=== PATIENT | male | born 1950 | race Caucasian/White ===

== ENCOUNTER 2017-08-31 16:05 | Emergency (ER) | payer MEDICARE, MEDICAID ==
[~2017-08-31] VITALS: Ht 167.6 cm; Wt 80.0 kg
[2017-08-31 18:25] LABS: *AMPHETAMINES SCREEN URINE NEGATIVE (NEGATIVE); *BARBITURATES SCREEN URINE NEGATIVE (NEGATIVE); *BENZODIAZEPINES SCREEN URINE NEGATIVE (NEGATIVE); *COCAINE SCREEN URINE NEGATIVE (NEGATIVE); CANNABINOID URINE SCREEN PRESUMTIVE POSITIVE (NEGATIVE); METHADONE URINE SCREEN NEGATIVE (NEGATIVE); OPIATES URINE SCREEN PRESUMTIVE POSITIVE (NEGATIVE); PHENCYCLIDINE URINE SCREEN NEGATIVE (NEGATIVE)
[2017-08-31 18:26] LABS: HEMATOCRIT. 32.9 % (42.0-52.0); MEAN CORPUSCULAR HEMOGLOBIN 29.5 pg (28.0-32.0); MEAN PLATELET VOLUME 9.8 fl (7.4-10.4); RED BLOOD CELL COUNT 3.74 mill/uL (4.7-6.1); RED CELL DISTRIBUTION WIDTH 20.1 % (11.6-14.6)
[2017-08-31 18:35] LABS: CHLORIDE 106 mEq/L (98-107)
[2017-08-31 18:40] LABS: ETHANOL BLOOD 41 mg/dL
[2017-08-31 18:42] LABS: PLATELET 46 x1000/uL (130-400)
[2017-08-31 18:58] LABS: PLATELET ESTIMATE MARKEDLY DECREASED
[2017-08-31 19:49] VITALS: BP 152/81
== END 2017-08-31 19:51 | disposition home or self-care (01) ==
LOC: ER 16:37
DX: T40.601A Poisoning by unspecified narcotics, accidental (unintentional), initial encounter (principal); F12.10 Cannabis abuse, uncomplicated; F11.10 Opioid abuse, uncomplicated; F17.200 Nicotine dependence, unspecified, uncomplicated; Y92.89 Other specified places as the place of occurrence of the external cause
CPT/HCPCS: 36415; 80053; 80305; 85025; 99284; G0482

== ENCOUNTER 2018-10-12 13:01 | Emergency (ER) | payer MEDICARE, MEDICAID ==
[~2018-10-12] VITALS: Ht 162.6 cm; Wt 77.0 kg
[~2018-10-12 13:01] MED LIST: FESO8TAB MT; SPIR50TA5 MT; TERA10CA4 MT; TRAM50TA3 MT; TRAZ-213 MT
[2018-10-12] MEDS ORDERED: BACITRACIN ZINC OINT UDPKT TOP ONE (14:30)
[2018-10-12] MEDS ORDERED: TETANUS, DIPHTHERIA, PERTUSSIS VAC/PF 0.5ML (>7YR OLD) IM ONE (14:30)
[2018-10-12 16:02] VITALS: BP 129/71
== END 2018-10-12 16:06 | disposition home or self-care (01) ==
LOC: ER 13:01
DX: S80.212A Abrasion, left knee, initial encounter (principal); S80.211A Abrasion, right knee, initial encounter; Z79.899 Other long term (current) drug therapy; W19.XXXA Unspecified fall, initial encounter; Y93.89 Activity, other specified; Y92.89 Other specified places as the place of occurrence of the external cause; Y99.8 Other external cause status
CPT/HCPCS: 73560; 90471; 90715; 99283

== ENCOUNTER 2019-02-26 12:35 | Emergency (ER) | payer MEDICARE, MEDICAID ==
[~2019-02-26] VITALS: Ht 160 cm; Wt 90.0 kg
[2019-02-26] MEDS ORDERED: TRAMADOL 50MG TABLET PO ONE (13:45)
[2019-02-26 14:25] VITALS: BP 129/75
== END 2019-02-26 14:48 | disposition home or self-care (01) ==
LOC: ER 12:35
DX: M54.5 Low back pain (principal); G89.29 Other chronic pain; Z85.9 Personal history of malignant neoplasm, unspecified; Z86.19 Personal history of other infectious and parasitic diseases
CPT/HCPCS: 99283

== ENCOUNTER 2019-04-21 10:13 | Inpatient (IN) | payer MEDICARE, MEDICAID ==
[~2019-04-21] VITALS: Ht 160 cm; Wt 66.2 kg
[2019-04-21] MEDS ORDERED: SODIUM CHLORIDE 0.9% 1,000 ML IV ONE (10:42)
[2019-04-21 10:59] LABS: BASOPHILS % 0.6 % (0.0-2.0); EOSINOPHILS % 2.8 % (0.0-5.0); HEMATOCRIT. 31.6 % (42.0-52.0); HEMOGLOBIN. 10.4 g/dL (14.0-18.0); LYMPHOCYTES % 16.7 % (20.0-50.0); MONOCYTES % 6.9 % (2.0-8.0); PLATELET 101 x1000/uL (130-400); RED BLOOD CELL COUNT 3.48 mill/uL (4.7-6.1); RED CELL DISTRIBUTION WIDTH 19.6 % (11.6-14.6)
[2019-04-21 11:06] LABS: CHLORIDE 108 mEq/L (98-107)
[2019-04-21 11:09] LABS: INR 1.4; PARTIAL THROMBOPLASTIN TIME 33.8 sec (23.4-31.0)
[2019-04-21 11:10] LABS: ETHANOL BLOOD < 10 mg/dL
[2019-04-21 11:14] LABS: CREATINE KINASE 68 IU/L (39-308)
[2019-04-21 11:17] LABS: CREATINE KINASE MB FRACTION 2.3 ng/mL (0.5-3.6)
[2019-04-21] MEDS ORDERED: MORPHINE SULFATE 4 MG/ML CPJ (NOT FOR IM USE) IV ONE (12:45)
[2019-04-21] MEDS ORDERED: ONDANSETRON HCL 4MG/2ML INJ IV ONE (12:45)
[2019-04-21] MEDS ORDERED: ACETAMINOPHEN 650MG/20.3ML UDC GT PRN (13:15)
[2019-04-21] MEDS ORDERED: ACETAMINOPHEN 650MG SUPP PR PRN (13:15)
[2019-04-21] MEDS ORDERED: ONDANSETRON HCL 4MG/2ML INJ IV PRN (13:15)
[2019-04-21] MEDS ORDERED: GUAIFENESIN 200MG/10ML SUGAR FREE UDC PO PRN (13:15)
[2019-04-21] MEDS ORDERED: DIPHENHYDRAMINE 50MG/ML VIAL IV PRN (13:15)
[2019-04-21] MEDS ORDERED: CLONIDINE 0.1MG TABLET PO PRN (13:15)
[2019-04-21] MEDS ORDERED: MAGNESIUM/ALUMINUM HYDROXIDE/SIMETHICONE 30ML UDC PO PRN (13:15)
[2019-04-21] MEDS ORDERED: NA PHOS,M-B/NA PHOS,DI-BA ENEMA 118ML PR PRN (13:15)
[2019-04-21] MEDS ORDERED: DOCUSATE SODIUM 100MG CAPSULE PO PRN (13:15)
[2019-04-21 16:04] VITALS: BP 115/79
[2019-04-21] MEDS: LACTULOSE 20G/30ML UDC PO SCH ×2 (16:28→21:39)
[2019-04-21] MEDS: ENOXAPARIN 40MG/0.4ML SYR SUBCUT SCH (16:28)
[2019-04-21] MEDS: ACETAMINOPHEN 325MG TABLET PO PRN (16:28)
[2019-04-21 20:00] VITALS: BP 155/74
[2019-04-21] MEDS: RIFAXIMIN 550 MG TABLET PO SCH (21:39)
[2019-04-21 23:19] LABS: CLARITY URINE CLEAR (CLEAR); COLOR URINE DARK YELLOW (YELLOW); KETONES URINE NEGATIVE (NEGATIVE); LEUKOCYTE ESTERASE URINE NEGATIVE (NEGATIVE); NITRITE URINE NEGATIVE (NEGATIVE); OCCULT BLOOD URINE NEGATIVE (NEGATIVE); PROTEIN URINE NEGATIVE (NEGATIVE); SPECIFIC GRAVITY URINE 1.018 (1.005-1.030); UROBILINOGEN URINE >8.0 E.U./dL (0.2-1.0)
[2019-04-21 23:30] LABS: *AMPHETAMINES SCREEN URINE NEGATIVE (NEGATIVE); *BARBITURATES SCREEN URINE NEGATIVE (NEGATIVE); *BENZODIAZEPINES SCREEN URINE NEGATIVE (NEGATIVE); *COCAINE SCREEN URINE NEGATIVE (NEGATIVE); METHADONE URINE SCREEN NEGATIVE (NEGATIVE); OPIATES URINE SCREEN PRESUMTIVE POSITIVE (NEGATIVE); PHENCYCLIDINE URINE SCREEN NEGATIVE (NEGATIVE)
[2019-04-21 23:31] LABS: CANNABINOID URINE SCREEN PRESUMTIVE POSITIVE (NEGATIVE)
[2019-04-22] VITALS: BP 117/73
[2019-04-22 04:00] VITALS: BP 133/75
[2019-04-22] MEDS: ACETAMINOPHEN 325MG TABLET PO PRN ×3 (05:29→20:30)
[2019-04-22] MEDS: LACTULOSE 20G/30ML UDC PO SCH ×3 (05:29→21:16)
[2019-04-22 05:43] LABS: BASOPHILS % 0.4 % (0.0-2.0); EOSINOPHILS % 2.9 % (0.0-5.0); HEMATOCRIT. 28.1 % (42.0-52.0); HEMOGLOBIN. 9.5 g/dL (14.0-18.0); LYMPHOCYTES % 20.5 % (20.0-50.0); MEAN CORPUSCULAR HEMOGLOBIN 30.5 pg (28.0-32.0); MEAN CORPUSCULAR VOLUME 90.2 fL (80.0-94.0); MONOCYTES % 9.9 % (2.0-8.0); NEUTROPHILS % 66.3 % (40.0-76.0); RED BLOOD CELL COUNT 3.12 mill/uL (4.7-6.1); RED CELL DISTRIBUTION WIDTH 19.3 % (11.6-14.6)
[2019-04-22 06:21] LABS: CHLORIDE 111 mEq/L (98-107)
[2019-04-22 06:28] LABS: LDL CHOLESTEROL 64 mg/dL (5-100)
[2019-04-22 06:29] LABS: HDL CHOLESTEROL 16 mg/dL (40-59)
[2019-04-22 07:06] LABS: MEAN PLATELET VOLUME 8.1 fl (7.4-10.4); PLATELET 103 x1000/uL (130-400)
[2019-04-22] MEDS: ENOXAPARIN 40MG/0.4ML SYR SUBCUT SCH (08:35)
[2019-04-22] MEDS: THIAMINE HCL 100MG TABLET PO SCH (08:35)
[2019-04-22] MEDS: RIFAXIMIN 550 MG TABLET PO SCH ×2 (08:35→20:30)
[2019-04-22] MEDS ORDERED: FURO40TA5 PO (10:42)
[2019-04-22] MEDS ORDERED: OMEP40CA34 PO (10:42)
[2019-04-22] MEDS ORDERED: HYDR-4009 MT (10:42)
[2019-04-22] MEDS ORDERED: DONE5TAB33 PO (10:42)
[2019-04-22] MEDS ORDERED: MELO-106 MT (10:42)
[2019-04-22] MEDS ORDERED: LACT10SO30 MT (10:42)
[2019-04-22] MEDS ORDERED: TRAM50TA3 PO (10:42)
[2019-04-22 12:00] VITALS: BP 110/50
[2019-04-22 16:00] VITALS: BP 119/65
[2019-04-22 20:00] VITALS: BP 127/70
[2019-04-23] VITALS: BP 136/74
[2019-04-23 04:00] VITALS: BP 135/80
[2019-04-23] MEDS: LACTULOSE 20G/30ML UDC PO SCH ×3 (06:21→20:46)
[2019-04-23 08:00] VITALS: BP 125/74
[2019-04-23] MEDS: THIAMINE HCL 100MG TABLET PO SCH (08:47)
[2019-04-23] MEDS: RIFAXIMIN 550 MG TABLET PO SCH ×2 (08:47→20:46)
[2019-04-23] MEDS: ENOXAPARIN 40MG/0.4ML SYR SUBCUT SCH (08:48)
[2019-04-23] MEDS: ACETAMINOPHEN 325MG TABLET PO PRN ×3 (08:48→20:46)
[2019-04-23 12:00] VITALS: BP 152/81
[2019-04-23] MEDS: METRONIDAZOLE 500 MG PREMIX 100 ML IV SCH ×2 (13:30→20:46)
[2019-04-23 13:55] LABS: BASOPHILS % 0.5 % (0.0-2.0); EOSINOPHILS % 2.9 % (0.0-5.0); HEMATOCRIT. 26.3 % (42.0-52.0); LYMPHOCYTES % 16.5 % (20.0-50.0); MEAN CORPUSCULAR HEMOGLOBIN 31.2 pg (28.0-32.0); MEAN CORPUSCULAR VOLUME 91.4 fL (80.0-94.0); MEAN PLATELET VOLUME 8.3 fl (7.4-10.4); MONOCYTES % 7.3 % (2.0-8.0); NEUTROPHILS % 72.8 % (40.0-76.0); PLATELET 82 x1000/uL (130-400); RED BLOOD CELL COUNT 2.88 mill/uL (4.7-6.1); RED CELL DISTRIBUTION WIDTH 20.2 % (11.6-14.6)
[2019-04-23 14:07] LABS: CHLORIDE 110 mEq/L (98-107)
[2019-04-23] MEDS: CEFTRIAXONE 1 G PREMIX 50 ML IV SCH (14:32)
[2019-04-23 16:00] VITALS: BP 126/70
[2019-04-23 20:00] VITALS: BP 137/68
[2019-04-24] VITALS: BP_SYST 141; BP_SYST 142; BP_DIAS 76; BP_DIAS 80
[2019-04-24 04:00] VITALS: BP 141/76
[2019-04-24] MEDS: METRONIDAZOLE 500 MG PREMIX 100 ML IV SCH ×3 (04:23→23:21)
[2019-04-24] MEDS: LACTULOSE 20G/30ML UDC PO SCH ×3 (06:00→23:21)
[2019-04-24 07:38] LABS: BASOPHILS % 0.2 % (0.0-2.0); HEMOGLOBIN. 9.5 g/dL (14.0-18.0); LYMPHOCYTES % 16.3 % (20.0-50.0); MEAN CORPUSCULAR VOLUME 91.7 fL (80.0-94.0); MEAN PLATELET VOLUME 7.8 fl (7.4-10.4); NEUTROPHILS % 75.5 % (40.0-76.0); PLATELET 102 x1000/uL (130-400); RED BLOOD CELL COUNT 3.06 mill/uL (4.7-6.1); RED CELL DISTRIBUTION WIDTH 20.2 % (11.6-14.6)
[2019-04-24 08:00] VITALS: BP 138/81
[2019-04-24] MEDS ORDERED: THIA100T72 PO (08:09)
[2019-04-24] MEDS ORDERED: RIFA550T PO (08:09)
[2019-04-24] MEDS ORDERED: LEVO500T2 MT (08:11)
[2019-04-24] MEDS ORDERED: METR500T MT (08:11)
[2019-04-24] MEDS: RIFAXIMIN 550 MG TABLET PO SCH ×2 (08:48→23:22)
[2019-04-24] MEDS: THIAMINE HCL 100MG TABLET PO SCH (08:48)
[2019-04-24] MEDS ORDERED: PHYTONADIONE 10MG/ML AMP IV NR (09:20)
[2019-04-24] MEDS ORDERED: HYDROCODONE/ACETAMINOPHEN 5/325MG TABLET PO PRN (09:30)
[2019-04-24] MEDS: HYDROCODONE/ACETAMINOPHEN 5/325MG TABLET PO PRN ×3 (10:45→19:38)
[2019-04-24 12:00] VITALS: BP 137/73
[2019-04-24] MEDS: CEFTRIAXONE 1 G PREMIX 50 ML IV SCH (12:03)
[2019-04-24] MEDS ORDERED: IPRATROPIUM/ALBUTEROL 0.5-3(2.5)MG/3ML NEB HHN PRN (14:15)
[2019-04-24] MEDS: SPIRONOLACTONE 25MG TABLET PO SCH (15:19)
[2019-04-24] MEDS: BUDESONIDE 0.5MG/2ML NEB HHN SCH (15:53)
[2019-04-24] MEDS: IPRATROPIUM/ALBUTEROL 0.5-3(2.5)MG/3ML NEB HHN SCH (15:53)
[2019-04-24 16:00] VITALS: BP 115/60
[2019-04-24 20:00] VITALS: BP 123/72
[2019-04-25] VITALS: BP 148/80
[2019-04-25] MEDS: IPRATROPIUM/ALBUTEROL 0.5-3(2.5)MG/3ML NEB HHN SCH ×3 (00:19→15:19)
[2019-04-25 04:00] VITALS: BP 136/81
[2019-04-25] MEDS: LACTULOSE 20G/30ML UDC PO SCH ×3 (05:20→21:50)
[2019-04-25] MEDS: METRONIDAZOLE 500 MG PREMIX 100 ML IV SCH ×3 (05:20→20:15)
[2019-04-25 08:00] VITALS: BP 150/74
[2019-04-25] MEDS: RIFAXIMIN 550 MG TABLET PO SCH ×3 (08:48→20:18)
[2019-04-25] MEDS: SPIRONOLACTONE 25MG TABLET PO SCH (08:48)
[2019-04-25] MEDS: HYDROCODONE/ACETAMINOPHEN 5/325MG TABLET PO PRN ×4 (08:49→21:13)
[2019-04-25] MEDS: THIAMINE HCL 100MG TABLET PO SCH (08:49)
[2019-04-25] MEDS: ENOXAPARIN 40MG/0.4ML SYR SUBCUT SCH (09:00)
[2019-04-25 12:18] VITALS: BP 140/85
[2019-04-25 16:08] VITALS: BP 163/85
[2019-04-25 20:00] VITALS: BP 146/78
[2019-04-25] MEDS: BUDESONIDE 0.5MG/2ML NEB HHN SCH (20:00)
[2019-04-26] VITALS (7 sets, daily range): BP systolic 123–146; BP diastolic 74–87
[2019-04-26] MEDS: METRONIDAZOLE 500 MG PREMIX 100 ML IV SCH ×2 (03:53→11:14)
[2019-04-26] MEDS: LACTULOSE 20G/30ML UDC PO SCH ×2 (06:00→13:22)
[2019-04-26] MEDS: BUDESONIDE 0.5MG/2ML NEB HHN SCH (07:37)
[2019-04-26] MEDS: IPRATROPIUM/ALBUTEROL 0.5-3(2.5)MG/3ML NEB HHN SCH ×2 (07:37→16:08)
[2019-04-26] MEDS: SPIRONOLACTONE 25MG TABLET PO SCH (08:34)
[2019-04-26] MEDS: ENOXAPARIN 40MG/0.4ML SYR SUBCUT SCH (08:35)
[2019-04-26] MEDS: HYDROCODONE/ACETAMINOPHEN 5/325MG TABLET PO PRN ×3 (08:35→17:49)
[2019-04-26] MEDS: THIAMINE HCL 100MG TABLET PO SCH (08:36)
[2019-04-26] MEDS: RIFAXIMIN 550 MG TABLET PO SCH (09:00)
[2019-04-26] MEDS: ACETAMINOPHEN 325MG TABLET PO PRN (15:18)
[2019-04-26 16:41] LABS: BASOPHILS % 0.8 % (0.0-2.0); EOSINOPHILS % 4.1 % (0.0-5.0); HEMATOCRIT. 28.7 % (42.0-52.0); HEMOGLOBIN. 9.8 g/dL (14.0-18.0); LYMPHOCYTES % 24.7 % (20.0-50.0); MEAN CORPUSCULAR HEMOGLOBIN 31.2 pg (28.0-32.0); MEAN CORPUSCULAR VOLUME 91.8 fL (80.0-94.0); MEAN PLATELET VOLUME 7.8 fl (7.4-10.4); MONOCYTES % 8.3 % (2.0-8.0); NEUTROPHILS % 62.1 % (40.0-76.0); PLATELET 92 x1000/uL (130-400); RED BLOOD CELL COUNT 3.13 mill/uL (4.7-6.1); RED CELL DISTRIBUTION WIDTH 21.5 % (11.6-14.6)
[2019-04-26 19:16] LABS: CLARITY URINE CLEAR (CLEAR); COLOR URINE DARK YELLOW (YELLOW); KETONES URINE 1+ (NEGATIVE); LEUKOCYTE ESTERASE URINE TRACE (NEGATIVE); NITRITE URINE NEGATIVE (NEGATIVE); OCCULT BLOOD URINE NEGATIVE (NEGATIVE); PH URINE 6.5 (4.5-8.0); PROTEIN URINE NEGATIVE (NEGATIVE); SPECIFIC GRAVITY URINE 1.017 (1.005-1.030); UROBILINOGEN URINE 0.2 E.U./dL (0.2-1.0)
== END 2019-04-26 21:25 | disposition home health service (06) | DRG 542 ==
LOC: ER 10:13 → 8WST 12:18 → EDBEDREQ 12:20 → ENRESERV 12:40
PROVIDERS: ADMIT Family Medicine; ATTEND Family Medicine
DX: M84.58XA Pathological fracture in neoplastic disease, other specified site, initial encounter for fracture (principal); K72.00 Acute and subacute hepatic failure without coma; C79.51 Secondary malignant neoplasm of bone; C22.0 Liver cell carcinoma; D68.9 Coagulation defect, unspecified; D61.818 Other pancytopenia; J81.1 Chronic pulmonary edema; J98.11 Atelectasis; E44.0 Moderate protein-calorie malnutrition; B18.2 Chronic viral hepatitis C; F12.90 Cannabis use, unspecified, uncomplicated; G89.29 Other chronic pain; F11.90 Opioid use, unspecified, uncomplicated; J44.9 Chronic obstructive pulmonary disease, unspecified; K72.90 Hepatic failure, unspecified without coma; K70.31 Alcoholic cirrhosis of liver with ascites; M51.36 Other intervertebral disc degeneration, lumbar region; K52.9 Noninfective gastroenteritis and colitis, unspecified; Z86.73 Personal history of transient ischemic attack (TIA), and cerebral infarction without residual deficits; Z87.891 Personal history of nicotine dependence; Z91.81 History of falling; Z79.899 Other long term (current) drug therapy; Z74.01 Bed confinement status
CPT/HCPCS: 36415; 71045; 72148; 74176; 80053; 80061; 80305; 80320; 81003; 82105; 82140; 82378; 82550; 82553; 83605; 83880; 84443; 84484; 85025; 86301; 93005; 93970; 94640; 97110; 97116; 97162; 97166; 97760; 99285; J0696; J1200; J1650; J2270; J2405; J3430; J3490; J7030; J7040; J7620; J7626; G0480